=== PATIENT | male | born 1985 | race Caucasian/White ===

== ENCOUNTER 2024-09-23 16:40 | Emergency (ER) | payer BC ==
[~2024-09-23] VITALS: Ht 182.9 cm; Wt 129.3 kg
[2024-09-23] MEDS ORDERED: diphenhydrAMINE HCL 50 MG/ML VIAL ONE (17:28)
[2024-09-23] MEDS ORDERED: ACETAMINOPHEN ES 500 MG TABLET ONE (17:28)
[2024-09-23] MEDS ORDERED: METOCLOPRAMIDE HCL 10 MG/2 ML VIAL ONE (17:28)
[2024-09-23] MEDS: diphenhydrAMINE HCL 50 MG/ML VIAL IV ONE (17:43)
[2024-09-23] MEDS: METOCLOPRAMIDE HCL 10 MG/2 ML VIAL IV ONE (17:44)
[2024-09-23] MEDS: IV NS 0.9% 1,000 ML BAG IV ONE (17:44)
[2024-09-23] MEDS: ACETAMINOPHEN ES 500 MG TABLET PO ONE (17:45)
[2024-09-23 17:55] LABS: BASOPHILS % (AUTO) 0.3 % (0.0-2.0); EOSINOPHILS % (AUTO) 0.5 % (0.0-6.0); HEMATOCRIT 43 % (39-51); HEMOGLOBIN 14.9 g/dL (13.5-17.5); LYMPHOCYTES # (AUTO) 1.8 K/uL (0.8-4.8); LYMPHOCYTES % (AUTO) 24.3 % (20.0-44.0); MEAN CORPUSCULAR HEMOGLOBIN 29 PG (26.0-33.0); MEAN CORPUSCULAR HGB CONC 35 g/dl (31.0-36.0); MEAN CORPUSCULAR VOLUME 83 fL (80-96); MONOCYTES # (AUTO) 0.5 K/uL (0.1-1.30); MONOCYTES % (AUTO) 7.1 % (2.0-12.0); NEUTROPHILS % (AUTO) 67.8 % (43.0-81.0); PLATELET COUNT (AUTO) 341 K/uL (150-450); RED BLOOD CELL COUNT(AUTO) 5.18 MIL/uL (4.5-6.0); RED CELL DISTRIBUTION WIDTH 13.2 % (11.5-15.0); WHITE BLOOD COUNT (AUTO) 7.4 K/uL (4.3-11.0)
[2024-09-23 18:00] LABS: CALCIUM, SERUM 8.9 mg/dL (8.5-10.1); CREATININE 0.9 mg/dL (0.6-1.3); POTASSIUM 4.4 mmol/L (3.5-5.1)
[2024-09-23 18:55] VITALS: BP 145/87; TEMP 98.3; O2SAT 98
== END 2024-09-23 18:56 | disposition home or self-care (01) ==
LOC: ER 16:49
DX: R51.9 Headache, unspecified (principal); B34.9 Viral infection, unspecified; R11.2 Nausea with vomiting, unspecified; F17.200 Nicotine dependence, unspecified, uncomplicated
CPT/HCPCS: 99284; 96374; 96361; 96375; 85025; 80048; 36415; J1200; J2765; J7030